=== PATIENT | female | born 1980 | race African-American/Black ===

== ENCOUNTER 2018-10-05 14:44 | Emergency (ER) | payer MEDICAID ==
[~2018-10-05] VITALS: Ht 165.1 cm; Wt 47.0 kg
[2018-10-05] MEDS ORDERED: KETOROLAC 30MG/ML VIAL IV STA (16:38)
[2018-10-05 16:45] VITALS: BP 116/48
[2018-10-05] MEDS ORDERED: HYDROCODONE/ACETAMINOPHEN 5/325MG TABLET PO ONE (16:45)
[2018-10-05 17:21] LABS: BASOPHILS % 1.3 % (0.0-2.0); EOSINOPHILS % 8.1 % (0.0-5.0); HEMATOCRIT. 30.3 % (36.0-48.0); HEMOGLOBIN. 9.4 g/dL (12.0-16.0); LYMPHOCYTES % 37.2 % (20.0-50.0); MEAN CORPUSCULAR HEMOGLOBIN 25.3 pg (28.0-32.0); MEAN CORPUSCULAR VOLUME 81.5 fL (81.0-99.0); MEAN PLATELET VOLUME 8.2 fl (7.4-10.4); MONOCYTES % 9.7 % (2.0-8.0); NEUTROPHILS % 43.7 % (40.0-76.0); PLATELET 229 x1000/uL (130-400); RED BLOOD CELL COUNT 3.71 mill/uL (4.2-5.4); RED CELL DISTRIBUTION WIDTH 16.1 % (11.6-14.6)
[2018-10-05 17:23] LABS: CHLORIDE 109 mEq/L (98-107)
[2018-10-05 17:24] LABS: PROTHROMBIN TIME 10.3 sec (9.6-11.0)
[2018-10-05 17:28] LABS: C REACTIVE PROTEIN QUANT 3.4 mg/L (0.0-3.0)
[2018-10-05] MEDS ORDERED: IOHEXOL-300 100 ML BOTTLE ONE (21:23)
[2018-10-05] MEDS ORDERED: LEVOFLOXACIN 500MG TABLET PO ONE (22:00)
[2018-10-05] MEDS ORDERED: AMOXICILLIN/POTASSIUM CLAVULANATE 875/125MG TAB PO ONE (22:00)
== END 2018-10-05 22:31 | disposition home or self-care (01) ==
LOC: ER 14:44
DX: L03.116 Cellulitis of left lower limb (principal); J45.909 Unspecified asthma, uncomplicated; E05.90 Thyrotoxicosis, unspecified without thyrotoxic crisis or storm; Z98.1 Arthrodesis status; Z88.6 Allergy status to analgesic agent
CPT/HCPCS: 36415; 73701; 80053; 81025; 85025; 85610; 85651; 86140; 93971; 96374; 99284; J1885; Q9967

== ENCOUNTER 2018-10-06 12:33 | Emergency (ER) | payer MEDICAID ==
[~2018-10-06] VITALS: Ht 165.1 cm; Wt 47.0 kg
[2018-10-06 13:04] VITALS: BP 115/73
== END 2018-10-06 17:43 | disposition home or self-care (01) ==
LOC: ER 12:33
DX: T80.89XA Other complications following infusion, transfusion and therapeutic injection, initial encounter (principal); J45.909 Unspecified asthma, uncomplicated; E05.90 Thyrotoxicosis, unspecified without thyrotoxic crisis or storm; Z88.6 Allergy status to analgesic agent; Z98.890 Other specified postprocedural states
CPT/HCPCS: 99282